=== PATIENT | male | born 1950 | race Caucasian/White ===

== ENCOUNTER 2018-04-01 22:20 | Inpatient (IN) | payer MEDICARE ==
[~2018-04-01] VITALS: Ht 170.2 cm; Wt 68.0 kg
[2018-04-01 22:53] LABS: Basophils # (auto) 0 uL; Basophils % (auto) 0.5 % (0.0-2.0); Eosinophils # (auto) 0.1 uL; Eosinophils % (auto) 1.8 % (0.0-7.0); Hematocrit 32.6 % (41.0-53.0); Hemoglobin 11.1 g/dL (13.5-17.5); Lymphocytes # (auto) 0.8 uL; Lymphocytes % (auto) 13.5 % (10.0-50.0); Mean Corpuscular Hemoglobin 30.9 pg (28.0-32.0); Mean Corpuscular Hgb Conc. 34.1 g/dL (32.0-36.0); Mean Corpuscular Volume 90.6 fL (80.0-100.0); Monocytes # (auto) 0.6 uL; Monocytes % (auto) 9.8 % (0.0-12.0); Neutrophils # (auto) 4.3 uL; Neutrophils % (auto) 74.4 % (37.0-80.0); Platelet Count (auto) 179 10^3/uL (140-450); Red Cell Distribution Width 16.1 % (11.8-14.3); White Blood Cell 5.8 10^3/uL (4.4-10.8)
[2018-04-01 23:12] LABS: Alanine Aminotransferase 22 U/L (16-61); Anion Gap 10 (5-15); Aspartate Aminotransferase 16 U/L (15-37); Blood Urea Nitrogen 20 mg/dL (7-18); Calcium 8.8 mg/dL (8.5-10.1); Carbon Dioxide 24 mmol/L (21-32); Chloride 106 mmol/L (98-107); GFR African American 96 mL/min; GFR Non-African American 80 mL/min; Glucose 220 mg/dL (74-106); Potassium 4.3 mmol/L (3.5-5.1); Sodium 140 mmol/L (136-145)
[2018-04-01 23:16] LABS: Alkaline Phosphatase 68 U/L (45-117); Bilirubin, Total 0.5 mg/dL (0.2-1.0); Total Protein 7.3 g/dL (6.4-8.2)
[2018-04-02] MEDS ORDERED: HYDROcodone-ACET 5/325MG TAB PO PRN (06:00)
[2018-04-02] MEDS ORDERED: NITROGLYCERIN 0.4 MG SL TAB SL PRN (06:00)
[2018-04-02] MEDS ORDERED: DEXTROSE (50%) 50ML SYRG IV PRN (06:00)
[2018-04-02] MEDS ORDERED: TEMAZEPAM 15 MG CAP PO PRN (06:00)
[2018-04-02] MEDS ORDERED: METOPROLOL TARTRATE 25 MG TAB PO ONE (06:00)
[2018-04-02] MEDS ORDERED: MORPHINE SULFATE 4 MG/ML SYR/VIAL IV PRN (06:00)
[2018-04-02] MEDS ORDERED: ONDANSETRON HCL 4 MG/2 ML VIAL IV PRN (06:00)
[2018-04-02] MEDS ORDERED: ACETAMINOPHEN 325 MG TAB PO PRN (06:00)
[2018-04-02] MEDS ORDERED: LEVOTHYROXINE SODIUM 50 MCG TAB PO SCH (07:00)
[2018-04-02] MEDS: InsuLIN REG 1unit/0.01ml Soln (100units/ml) SC SCH ×2 (07:39→11:20)
[2018-04-02] MEDS: ACCU-CHEK COMFORT CURVE STRIP VI SCH ×2 (07:39→11:21)
[2018-04-02] MEDS ORDERED: METF-370 PO (07:41)
[2018-04-02 09:00] VITALS: BP 130/66
[2018-04-02] MEDS ORDERED: SITA25TA3 PO (09:46)
[2018-04-02] MEDS ORDERED: PANT40T PO (09:46)
[2018-04-02] MEDS ORDERED: ROSU10TA16 PO (09:46)
[2018-04-02] MEDS ORDERED: LEVO125T66 PO (09:46)
[2018-04-02] MEDS ORDERED: FAMOTIDINE 20 MG TAB PO SCH (10:00)
[2018-04-02] MEDS ORDERED: METOPROLOL TARTRATE 25 MG TAB PO SCH (10:00)
[2018-04-02] MEDS ORDERED: ASPirin 81 mg TAB PO SCH (10:00)
[2018-04-02 13:00] VITALS: BP 141/64
[2018-04-02] MEDS ORDERED: LISINOPRIL 20 MG TAB PO ONE (13:00)
[2018-04-02] MEDS ORDERED: ATORVASTATIN 20 MG TAB PO ONE (13:00)
[2018-04-02 14:38] LABS: Cholesterol 100 mg/dL (< 200); HDL Cholesterol 60 mg/dL (40-59); LDL Cholesterol 41 mg/dL (< 100); Triglycerides 46 mg/dL (< 150)
[2018-04-02] MEDS ORDERED: IOHEXOL 300 MG/ML 100ML BOTTLE IJ ONE (14:59)
[2018-04-02] MEDS ORDERED: GASTROGRAFIN 30 ML SOL ONE (14:59)
[2018-04-02 16:39] LABS: Amylase 47 U/L (25-115); Lipase 192 U/L (73-393)
[2018-04-02 17:00] VITALS: BP 147/77
[2018-04-03] MEDS ORDERED: LISINOPRIL 20 MG TAB PO SCH (10:00)
[2018-04-03] MEDS ORDERED: ATORVASTATIN 20 MG TAB PO SCH (22:00)
== END 2018-04-02 17:55 | disposition left against medical advice (07) | DRG 303 ==
LOC: ER 22:20 → TELE 22:21 → TELE-WESTW 04-02 08:19
PROVIDERS: ADMIT Nurse Practitioner; ATTEND Family Medicine
DX: I25.10 Atherosclerotic heart disease of native coronary artery without angina pectoris (principal); E06.3 Autoimmune thyroiditis; E11.9 Type 2 diabetes mellitus without complications; E78.00 Pure hypercholesterolemia, unspecified; I10 Essential (primary) hypertension; I45.10 Unspecified right bundle-branch block; I70.0 Atherosclerosis of aorta; K86.9 Disease of pancreas, unspecified; Z79.82 Long term (current) use of aspirin; Z79.899 Other long term (current) drug therapy
CPT/HCPCS: 36415; 71046; 80053; 80061; 82150; 82962; 83036; 83690; 83735; 84443; 84484; 85025; 93306